=== PATIENT | female | born 1955 | race Caucasian/White ===

== ENCOUNTER 2017-10-23 21:13 | Emergency (ER) | payer BC, OTHER ==
--- NOTE | 2017-10-23 21:22 | PDOC ---
Rapid Medical Evaluation Time Seen by Provider: 10/23/17 21:18 Medical Evaluation: 10/23/17 21:18 I have performed a brief in-person evaluation of this patient. The patient presents with a chief complaint of: s/p fall with back pain today, [facility] Reports pain with or without walking Pertinent physical exam findings: slow cautious gait swelling to mid back no mid-spinal tenderness tenderness with palpation posteriorly over lower ribs I have ordered the following: xray and analgesia The patient will proceed to the ED for further evaluation. Discharge Disposition - Referrals Referrals: Jessica Delvalle MD [Primary Care Provider] - - Patient Instructions - Post Discharge Activity
[2017-10-23 21:27] VITALS: BP 151/95; PULSE 93; TEMP 97.9; BMI 28.0
--- NOTE | 2017-10-23 23:54 | PDOC ---
History of Present Illness - History of Present Illness Initial Comments: 10/24/17 00:07 The patient is a 62 year old female who denies any significant past medical history who presents to the ED complaining of right mid back pain that began this evening. She states she slipped and fell, landing on her backside this evening at the onset of her pain. Her pain is worse with positional changes and deep inspiration. She denies numbness or tingling. She denies any bladder or bowel incontinence. She denies radiation of pain. <Shahana Stanley - Last Filed: 10/24/17 00:07> - General History Source: Patient <ShawnafshanSarkis - Last Filed: 10/24/17 19:25> - General Chief Complaint: Pain Stated Complaint: INJURY Time Seen by Provider: 10/23/17 21:18 Past History <Shahana Stanley - Last Filed: 10/24/17 00:07> - Past Medical History COPD: No Other medical history: Pt denies - Surgical History Appendectomy: Yes - Suicide/Smoking/Psychosocial Hx Smoking History: Never smoked Have you smoked in the past 12 months: No Information on smoking cessation initiated: No Hx Alcohol Use: No Drug/Substance Use Hx: No Substance Use Type: None <Sarkis White - Last Filed: 10/24/17 19:25> - Past Medical History Allergies/Adverse Reactions: Allergies Allergy/AdvReac Type Severity Reaction Status Date / Time No Known Allergies Allergy Verified 10/23/17 21:23 Home Medications: Ambulatory Orders Ibuprofen 800 mg PO TID #30 tablet 10/23/17 Methocarbamol [Robaxin -] 500 mg PO TID #30 tablet 10/23/17 Oxycodone HCl/Acetaminophen [Percocet 5-325 mg Tablet] 1 - 2 tab PO Q6H #20 tablet MDD 4 10/23/17 Review of Systems - Review of Systems Able to Perform ROS?: Yes Comments:: 10/24/17 00:09 GENERAL/CONSTITUTIONAL: No fever or chills. No weakness. HEAD, EYES, EARS, NOSE AND THROAT: No change in vision. No ear pain or discharge. No sore throat. CARDIOVASCULAR: No chest pain or shortness of breath. RESPIRATORY: No cough, wheezing, or hemoptysis. GASTROINTESTINAL: No nausea, vomiting, diarrhea or constipation. GENITOURINARY: No dysuria, frequency, or change in urination. MUSCULOSKELETAL: +R mid back pain. No joint or muscle swelling or pain. No neck pain. SKIN: No rash NEUROLOGIC: No headache, vertigo, loss of consciousness, or change in strength/ sensation. ENDOCRINE: No increased thirst. No abnormal weight change. HEMATOLOGIC/LYMPHATIC: No anemia, easy bleeding, or history of blood clots. ALLERGIC/IMMUNOLOGIC: No hives or skin allergy. <Shahana Stanley - Last Filed: 10/24/17 00:07> *Physical Exam - Vital Signs Last Vital Signs Temp Pulse Resp BP Pulse Ox 97.9 F 93 H 18 151/95 97 10/23/17 21:24 10/23/17 21:24 10/23/17 21:24 10/23/17 21:24 10/23/17 21:24 - Physical Exam Comments: 10/24/17 00:15 GENERAL: Awake, alert, and fully oriented, in no acute distress HEAD: No signs of trauma EYES: PERRLA, EOMI, sclera anicteric, conjunctiva clear ENT: Auricles normal inspection, hearing grossly normal, nares patent, oropharynx clear without exudates. Moist mucosa NECK: Normal ROM, supple, no lymphadenopathy, JVD, or masses LUNGS: Breath sounds equal, clear to auscultation bilaterally. No wheezes, and no crackles HEART: Regular rate and rhythm, normal S1 and S2, no murmurs, rubs or gallops ABDOMEN: Soft, nontender, normoactive bowel sounds. No guarding, no rebound. No masses BACK: +Tenderness to palpation over the posterior right chest with no bony crepitus. EXTREMITIES: Normal range of motion, no edema. No clubbing or cyanosis. No cords, erythema, or tenderness NEUROLOGICAL: Cranial nerves II through XII grossly intact. Normal speech, normal gait SKIN: Warm, Dry, normal turgor, no rashes or lesions noted. <Shahana Stanley - Last Filed: 10/24/17 00:07> - Vital Signs Last Vital Signs Temp Pulse Resp BP Pulse Ox 97.9 F 93 H 18 151/95 97 10/23/17 21:24 10/23/17 21:24 10/23/17 21:24 10/23/17 21:24 10/23/17 21:24 <Sarkis White - Last Filed: 10/24/17 19:25> Medical Decision Making - Medical Decision Making 10/24/17 19:25 Dr. White: The scribe's documentation has been prepared under my direction and personally reviewed by me in its entirery. I confirm that the note above accurately reflects all work, treatment, procedures, and medical decision making performed by me. <Sarkis White - Last Filed: 10/24/17 19:25> *DC/Admit/Observation/Transfer - Attestations Scribe Attestion: 10/24/17 00:16 Documentation prepared by Shahana Stanley, acting as medical asst for Sarkis White DO. <Shahana Stanley - Last Filed: 10/24/17 00:07> - Discharge Dispostion Decision to Admit order: No <Sarkis White - Last Filed: 10/24/17 19:25> Diagnosis at time of Disposition: Contusion of rib on right side Qualifiers: Encounter type: initial encounter Qualified Code(s): S20.211A - Contusion of right front wall of thorax, initial encounter - Discharge Dispostion Disposition: HOME Condition at time of disposition: Stable - Prescriptions Prescriptions: Ibuprofen 800 mg PO TID #30 tablet Methocarbamol [Robaxin -] 500 mg PO TID #30 tablet Oxycodone HCl/Acetaminophen [Percocet 5-325 mg Tablet] 1 - 2 tab PO Q6H #20 tablet MDD 4 - Referrals Referrals: Jessica Delvalle MD [Primary Care Provider] - - Patient Instructions Printed Discharge Instructions: DI for Rib Contusion Additional Instructions: take medication as directed. Take Percocet if pain is severe. Might cause sedation. Avoid driving when taking Percocet. Take deep breaths periodically to avoid pneumonias - Post Discharge Activity Forms/Work/School Notes: Back to Work
== END 2017-10-24 00:25 | disposition home or self-care (01) ==
LOC: JER 21:13
DX: S20.211A Contusion of right front wall of thorax, initial encounter (principal); W01.0XXA Fall on same level from slipping, tripping and stumbling without subsequent striking against object, initial encounter; Y93.89 Activity, other specified; Y92.9 Unspecified place or not applicable; W18.39XA Other fall on same level, initial encounter
CPT/HCPCS: 71111-TC-FY; 99281-25

== ENCOUNTER 2023-07-21 13:57 | Emergency (ER) | payer BC, OTHER ==
[2023-07-21 14:06] VITALS: BP 138/82; PULSE 71; RESP 19; TEMP 97.7; BMI 29.5
== END 2023-07-21 15:35 | disposition home or self-care (01) ==
LOC: FER 13:57
DX: M25.511 Pain in right shoulder (principal); S42.201A Unspecified fracture of upper end of right humerus, initial encounter for closed fracture; W01.0XXA Fall on same level from slipping, tripping and stumbling without subsequent striking against object, initial encounter; Y93.01 Activity, walking, marching and hiking
CPT/HCPCS: 73030-TC-RT-FY; 73060-TC-RT-FY; 99283-25